=== PATIENT | male | born 1945 ===

== ENCOUNTER 2018-10-14 06:27 | Day surgery (SDC) ==
[2018-10-14] MEDS: TETRACAINE 0.5% UNIT-DOSE OP PRN ×2 (07:40→09:00)
[2018-10-14] MEDS: BETADINE OPTH PREP OP PRN ×2 (07:40→09:00)
[2018-10-14] MEDS: CYCLOGYL 2% OPTH OP PRN ×3 (07:41→07:51)
[2018-10-14] MEDS ORDERED: LIDOCAINE 1% 20 ML MDV ID STA (07:50)
[2018-10-14] MEDS ORDERED: DEX-MOXI-KETOR OPTH INJ 1/0.5/0.4 MG/ML IO ONE (07:50)
[2018-10-14] MEDS ORDERED: ZOFRAN 4 MG/2 ML IVP ONE (07:50)
[2018-10-14] MEDS ORDERED: BRIMONIDINE TARTRATE 0.2% OPTH SOL OP PRN (07:50)
[2018-10-14] MEDS ORDERED: BSS WITH EPINEPHRINE OP ONE (07:50)
[2018-10-14] MEDS ORDERED: LIDOCAINE 1%/PHENYLEPHRINE 1.5% BSS (SURGERY) INTRAOCULA ONE (07:50)
[2018-10-14 08:03] VITALS: TEMP 97.4
[2018-10-14] MEDS ORDERED: VERSED ONE (09:01)
[2018-10-14] MEDS ORDERED: ZOFRAN 4 MG/2 ML ONE (09:01)
[2018-10-14] MEDS ORDERED: SUBLIMAZE ONE (09:01)
[2018-10-14 10:31] VITALS: BP 132/78
== END 2018-10-14 10:00 | disposition home or self-care (01) ==
LOC: SURG 06:27
PROVIDERS: ATTEND Ophthalmology
DX: H25.811 Combined forms of age-related cataract, right eye (principal)

== ENCOUNTER 2018-10-28 06:13 | Day surgery (SDC) | payer OTHER ==
[2018-10-28] MEDS: BETADINE OPTH PREP OP PRN ×2 (06:40→07:39)
[2018-10-28] MEDS: CYCLOGYL 2% OPTH OP PRN ×3 (06:40→06:50)
[2018-10-28] MEDS: TETRACAINE 0.5% UNIT-DOSE OP PRN ×2 (06:40→07:39)
[2018-10-28] MEDS ORDERED: LIDOCAINE 1% 20 ML MDV ID STA (06:53)
[2018-10-28] MEDS ORDERED: DEX-MOXI-KETOR OPTH INJ 1/0.5/0.4 MG/ML IO ONE (06:53)
[2018-10-28] MEDS ORDERED: ZOFRAN 4 MG/2 ML IVP ONE (06:53)
[2018-10-28] MEDS ORDERED: BRIMONIDINE TARTRATE 0.2% OPTH SOL OP PRN (06:53)
[2018-10-28] MEDS ORDERED: LIDOCAINE 1%/PHENYLEPHRINE 1.5% BSS (SURGERY) INTRAOCULA ONE (06:53)
[2018-10-28] MEDS ORDERED: BSS WITH EPINEPHRINE OP ONE (06:53)
[2018-10-28 07:05] VITALS: TEMP 97.6
[2018-10-28] MEDS ORDERED: ZOFRAN 4 MG/2 ML ONE (07:30)
[2018-10-28] MEDS ORDERED: VERSED ONE (07:30)
[2018-10-28] MEDS ORDERED: SUBLIMAZE ONE (07:30)
[2018-10-28 13:30] VITALS: BP 128/82
== END 2018-10-28 08:25 | disposition home or self-care (01) ==
LOC: SURG 06:13
PROVIDERS: ATTEND Ophthalmology
DX: H25.812 Combined forms of age-related cataract, left eye (principal)